=== PATIENT | female | born 1980 | race Hispanic/Latino ===

== ENCOUNTER 2021-10-03 22:34 | Emergency (ER) | payer SELFPAY ==
[2021-10-03] MEDS ORDERED: levETIRAcetam 1000 MG/NS 0.75% 1,000 MG/100 ML BAG IV ONE (22:39)
--- NOTE | 2021-10-03 22:46 | Emergency Department Report ---
<MILY RUIZ S - Last Filed: 10/04/21 11:54> ED ENT HPI - General Chief complaint: Seizure Stated complaint: NOSE BLEED, SEIZURE Time Seen by Provider: 10/03/21 22:38 - Related Data Previous Rx's Medication Instructions Recorded Last Taken Type dexAMETHasone [Hemady] 2 tab PO DAILY 3 Days #6 tablet 10/04/21 Unknown Rx levETIRAcetam [Keppra TAB] 500 mg PO BID 30 Days #60 tablet 10/04/21 Unknown Rx Allergies Allergy/AdvReac Type Severity Reaction Status Date / Time No Known Allergies Allergy Verified 10/03/21 23:42 ED Dental HPI - General Chief complaint: Seizure Stated complaint: NOSE BLEED, SEIZURE Time Seen by Provider: 10/03/21 22:38 - Related Data Previous Rx's Medication Instructions Recorded Last Taken Type dexAMETHasone [Hemady] 2 tab PO DAILY 3 Days #6 tablet 10/04/21 Unknown Rx levETIRAcetam [Keppra TAB] 500 mg PO BID 30 Days #60 tablet 10/04/21 Unknown Rx Allergies Allergy/AdvReac Type Severity Reaction Status Date / Time No Known Allergies Allergy Verified 10/03/21 23:42 ED Past Medical Hx - Medications Home Medications: Home Medications Medication Instructions Recorded Confirmed Last Taken Type dexAMETHasone [Hemady] 2 tab PO DAILY 3 Days #6 tablet 10/04/21 Unknown Rx levETIRAcetam [Keppra TAB] 500 mg PO BID 30 Days #60 tablet 10/04/21 Unknown Rx ED Course - Reevaluation(s) Reevaluation #1: 10/04/21 09:18 Recently the patient's significant other came out to tell me that the patient wanted to sign out AGAINST MEDICAL ADVICE. I reiterated the patient's Dr. Juan Jose huertas was previous concerns the patient that she has new onset of significant and symptomatic thrombocytopenia that would need transfer to a tertiary center with probable admission, and that the patient needs a transfusion. She understands that the risks involved with leaving at this time include continued or worsening bleeding, shortness of breath, syncope, or even . Patient is awake, alert, oriented, and has a normal decision-making capacity and therefore despite understanding the risks involved had decided to sign out AGAINST MEDICAL ADVICE. Just as I approached the patient's nurse to let her know of the decision for AMA, the patient's platelets became available for transfusion. The patient has agreed to stay for a blood transfusion but still refuses admission or transfer to a tertiary center. We will provide the platelet transfusion and then, if the patient still refuses transfer or admission, she will sign out AMA with the information and prescriptions written by Dr. Gomez. ED Medical Decision Making - Lab Data Result diagrams: 10/03/21 23:24 10/03/21 23:24 - Medical Decision Making I was signed out this patient to follow-up on her platelet transfusion. 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 She had declined transfer to an outside facility. Initially the patient refused to remain in the emergency department any further for her platelet transfusion, as we did not know a specific time that they would be available. Around the time that she was going to sign out AMA the platelets became available for transfusion. She has now finished the platelet transfusion, but still refuses to remain in the emergency department for me to attempt transfer to a tertiary center. Patient is awake, alert, oriented, and has a normal decision-making capacity. She understands the risks involved of leaving AMA at this time. She was given educational information regarding her conditions and was given the prescriptions for steroids and Keppra. She understands that she can return to the emergency department at any point if she changes her mind about further evaluation, transfer to an outside facility, or with any acute distress. ED Disposition Clinical Impression: Acute ITP, Seizure disorder, Breakthrough seizure Disposition: 07 LEFT AGAINST MEDICAL ADVICE Is pt being admited?: No Condition: Stable Instructions: Platelet Transfusion, Epilepsy, [id number] Prescriptions: dexAMETHasone [Hemady] 2 tab PO DAILY 3 Days #6 tablet levETIRAcetam [Keppra TAB] 500 mg PO BID 30 Days #60 tablet Referrals: JOSELUIS SINGLETARY DO [Staff Physician] - 3-5 Days NINA GENAO MD [Staff Physician] - 3-5 Days Forms: AMA Form <KIRSTEN GOMEZ - Last Filed: 10/07/21 23:33> ED ENT HPI - General Source: patient, EMS Mode of arrival: Stretcher Limitations: No Limitations - History of Present Illness Initial comments: Chief complaint nose bleeding, mouth bleeding, rash, seizure HPI: This is a 41-year-old female with history of seizure disorder who was evaluated earlier today at [facility] for rash, gum bleeding and nosebleeding.. She left AGAINST MEDICAL ADVICE after being told that she had low platelet count. Her family attempted to transfer back to the hospital. She had seizure in route to the hospital. EMS was called. Gum bleeding began last night. She also has generalized rash of red spots throughout her body. Nosebleeding began today. She has had seizures since age 14. She normally has seizures every 3 months. Typically seizures triggered by marijuana use. She does not have insurance. Consequently she does not take any epileptic medication. She denies fever. Denies head trauma. 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 She lives with her . She does not have cold symptoms. Patient takes Aleve or Goody's powder almost daily. She has taken these medications for several years for frequent headaches. complaint: epistaxis -: Gradual, This morning Severity: severe Consistency: constant Improves with: pressure Context-Epistaxis: other (Diagnosed with low platelet count at [facility] today) ED Dental HPI - General Source: EMS Mode of arrival: Stretcher Limitations: No Limitations ED Review of Systems ROS: Stated complaint: NOSE BLEED, SEIZURE Other details as noted in HPI Comment: All other systems reviewed and negative Constitutional: denies: chills, fever, malaise Respiratory: denies: cough, shortness of breath Cardiovascular: denies: chest pain Skin: denies: rash, lesions Neurological: denies: headache, weakness, confusion, abnormal gait ED Past Medical Hx - Past Medical History Previous Medical History?: Yes Hx Seizures: Yes Additional medical history: LOW PLATELET COUNT, - Surgical History Past Surgical History?: Yes Additional Surgical History: Ovarian cystectomy - Social History Smoking Status: Current Every Day Smoker Substance Use Type: Marijuana ED Physical Exam - General Limitations: No Limitations General appearance: alert, in no apparent distress - Head Head exam: Present: atraumatic, normocephalic - Eye Eye exam: Present: normal appearance - ENT ENT exam: Present: other (Gum bleeding oozing blood, nasal clamp with tissue nose) - Neck Neck exam: Present: normal inspection, full ROM - Respiratory Respiratory exam: Present: normal lung sounds bilaterally. Absent: respiratory distress, wheezes, rales, rhonchi - Cardiovascular Cardiovascular Exam: Present: regular rate, normal rhythm, normal heart sounds. Absent: systolic murmur, diastolic murmur, rubs, gallop - GI/Abdominal GI/Abdominal exam: Present: soft, normal bowel sounds. Absent: distended, tenderness, guarding, rebound - Extremities Exam Extremities exam: Present: normal inspection - Neurological Exam Neurological exam: Present: alert, oriented X3 - Psychiatric Psychiatric exam: Present: normal affect, normal mood - Skin Skin exam: Present: warm, rash (Petechial rash nonblanching throughout extremities and torso), ecchymosis (Ecchymoses antecubital fossae presumed previous IV site) ED Course Vital Signs 10/03/21 10/03/21 10/03/21 22:55 23:00 23:16 Temperature Pulse Rate 79 Respiratory 18 Rate Blood Pressure 129/71 140/62 Blood Pressure [Left] O2 Sat by Pulse 95 95 97 Oximetry 10/03/21 10/03/21 10/03/21 23:30 23:41 23:46 Temperature 98 F Pulse Rate 92 H 83 82 Respiratory 15 18 21 Rate Blood Pressure 140/62 113/74 Blood Pressure 130/70 [Left] O2 Sat by Pulse 94 100 97 Oximetry 10/04/21 10/04/21 10/04/21 00:00 00:16 00:30 Temperature Pulse Rate 86 90 81 Respiratory 15 15 19 Rate Blood Pressure 100/56 81/44 81/44 Blood Pressure [Left] O2 Sat by Pulse 100 95 98 Oximetry 10/04/21 10/04/21 10/04/21 00:46 01:00 01:16 Temperature Pulse Rate 86 76 78 Respiratory 19 17 17 Rate Blood Pressure 130/74 115/55 119/76 Blood Pressure [Left] O2 Sat by Pulse 99 98 94 Oximetry 10/04/21 10/04/21 10/04/21 01:30 01:46 02:00 Temperature Pulse Rate 85 90 73 Respiratory 22 22 22 Rate Blood Pressure 130/74 129/74 133/83 Blood Pressure [Left] O2 Sat by Pulse 96 96 96 Oximetry 10/04/21 10/04/21 10/04/21 02:16 02:30 02:46 Temperature Pulse Rate 86 85 88 Respiratory 20 25 H 16 Rate Blood Pressure 122/77 121/67 121/76 Blood Pressure [Left] O2 Sat by Pulse 96 96 96 Oximetry 10/04/21 10/04/21 10/04/21 03:00 03:16 03:30 Temperature Pulse Rate 86 81 80 Respiratory 13 21 24 Rate Blood Pressure 109/75 121/76 130/80 Blood Pressure [Left] O2 Sat by Pulse 98 97 98 Oximetry 10/04/21 10/04/21 10/04/21 03:46 04:00 04:16 Temperature Pulse Rate 85 83 88 Respiratory 19 17 19 Rate Blood Pressure 122/78 118/77 120/76 Blood Pressure [Left] O2 Sat by Pulse 98 98 96 Oximetry 10/04/21 10/04/21 10/04/21 04:30 04:46 05:00 Temperature Pulse Rate 86 86 81 Respiratory 20 17 17 Rate Blood Pressure 117/75 121/77 126/79 Blood Pressure [Left] O2 Sat by Pulse 96 96 97 Oximetry 10/04/21 10/04/21 10/04/21 05:16 05:30 05:46 Temperature Pulse Rate 101 H 83 Respiratory 16 15 Rate Blood Pressure 136/83 121/77 120/75 Blood Pressure [Left] O2 Sat by Pulse 97 95 97 Oximetry 10/04/21 10/04/21 10/04/21 06:00 06:16 06:30 Temperature Pulse Rate 88 87 91 H Respiratory 19 19 17 Rate Blood Pressure 121/80 127/76 123/79 Blood Pressure [Left] O2 Sat by Pulse 96 96 96 Oximetry 10/04/21 10/04/21 10/04/21 06:46 07:00 07:16 Temperature Pulse Rate 89 93 H 96 H Respiratory 21 18 18 Rate Blood Pressure 113/71 91/51 91/51 Blood Pressure [Left] O2 Sat by Pulse 98 96 97 Oximetry 10/04/21 10/04/21 10/04/21 07:30 07:46 08:00 Temperature Pulse Rate 86 85 87 Respiratory 16 18 16 Rate Blood Pressure 91/51 91/51 91/51 Blood Pressure [Left] O2 Sat by Pulse 97 99 97 Oximetry 10/04/21 10/04/21 10/04/21 08:16 08:30 08:46 Temperature Pulse Rate 90 92 H 103 H Respiratory 23 15 14 Rate Blood Pressure 91/51 91/51 91/51 Blood Pressure [Left] O2 Sat by Pulse 95 98 99 Oximetry 10/04/21 10/04/21 10/04/21 09:00 09:16 09:30 Temperature Pulse Rate 89 Respiratory 16 Rate Blood Pressure 91/51 91/51 91/51 Blood Pressure [Left] O2 Sat by Pulse 97 99 98 Oximetry 10/04/21 10/04/21 10/04/21 09:46 10:47 10:48 Temperature 98.0 F Pulse Rate 106 H Respiratory 16 Rate Blood Pressure 91/51 122/77 Blood Pressure 122/77 [Left] O2 Sat by Pulse 98 99 100 Oximetry ED Medical Decision Making - Lab Data Result diagrams: 10/03/21 23:24 10/03/21 23:24 - Medical Decision Making 1. Clinical impression: ITP severe thrombocytopenia 4000 platelet count. Patient declined transfer to outside facility. Epistaxis resolved after high- dose Decadron 40 mg IV. At 4 AM, blood pain contacted with severe delay in platelet transfusion. I have ordered transfusion of platelets. Also prescribed Decadron pulse therapy high- dose. Anticipate discharge according to patient's wishes after platelet transfusion. Referred to gis administrator. 2. Seizure history of seizure disorder patient received IV Keppra load. Prescription for Keppra provided. I have reviewed electronic medical record. Treatment was appropriate. Critical Care Time: Yes Critical care time in (mins) excluding proc time.: 40 Critical care attestation.: If time is entered above; I have spent that time in minutes in the direct care of this critically ill patient, excluding procedure time. 40 minutes of critical care time excluding procedures were used in the care of the patient. I came immediately to the bedside upon patient's arrival. I obtained history from EMS at the bedside. I discussed treatment plan with the nursing team members. I reviewed electronic record. Patient required multiple interventions and reassessments. ED Disposition Is pt being admited?: No Does the pt Need Aspirin: No
[2021-10-03] MEDS ORDERED: SODIUM CHLORIDE 0.9% 500 ML 500 ML IV ONE (23:08)
[2021-10-04 00:05] LABS: Basophils # (Auto) 0.1 K/mm3 (0.0-0.1); Basophils % (Auto) 0.7 % (0.0-1.8); Eosinophils # (Auto) 0.1 K/mm3 (0.0-0.4); Eosinophils % (Auto) 0.4 % (0.0-4.3); Hematocrit 40.5 % (30.3-42.9); Hemoglobin 13.1 gm/dl (10.1-14.3); Lymphocytes % (Auto) 14.9 % (13.4-35.0); Mean Corpuscular HGB Conc 32 % (30-34); Mean Corpuscular Volume 90 fl (79-97); Monocytes # (Auto) 1.1 K/mm3 (0.0-0.8); Monocytes % (Auto) 8.5 % (0.0-7.3); Red Blood Count 4.48 M/mm3 (3.65-5.03)
[2021-10-04 00:15] LABS: Alanine Aminotransferase 15 units/L (7-56); Albumin 3.9 g/dL (3.9-5); Blood Urea Nitrogen 34 mg/dL (7-17); Calcium 8.8 mg/dL (8.4-10.2); Hemolysis Index 3
[2021-10-04 00:17] LABS: BUN/Creatinine Ratio 57
[2021-10-04 03:18] LABS: Platelet Count 4 K/mm3 (140-440)
[2021-10-04] MEDS ORDERED: SODIUM CHLORIDE 0.9% 500 ML 500 ML ONE (10:44)
[2021-10-04 10:48] VITALS: BP 122/77
== END 2021-10-05 10:45 | disposition left against medical advice (07) ==
LOC: ED 22:34
DX: G40.909 Epilepsy, unspecified, not intractable, without status epilepticus (principal); D69.3 Immune thrombocytopenic purpura; F17.290 Nicotine dependence, other tobacco product, uncomplicated; F12.90 Cannabis use, unspecified, uncomplicated; Z98.890 Other specified postprocedural states
CPT/HCPCS: 36415; 80053; 84703; 85025; 86900; 86901; 96365; 96375; 99284; J1100; J1953; J7040